=== PATIENT | male | born 1995 | race Two or more races ===

== ENCOUNTER 2024-02-04 10:51 | Emergency (ER) | payer OTHER, SELFPAY ==
[2024-02-04 11:10] VITALS: BP 152/99; PULSE 74; RESP 22; TEMP 36.7; O2SAT 98; BMI 27.1
--- NOTE | 2024-02-04 11:21 | EXP.UTC ---
Discharge Plan Disposition Patient Disposition: Home, Self-Care Condition: Good Prescriptions Prescriptions: New amoxicillin 500 mg capsule 500 mg PO TID 7 Days Qty: 21 0RF ibuprofen 600 mg tablet 600 mg PO Q6HP PRN (Reason: Moderate Pain) Qty: 20 0RF No Action glipizide 2.5 mg tablet extended release 24hr 2.5 mg PO DAILY Patient Comments: TAKE 1 TABLET BY MOUTH DAILY losartan 25 mg tablet 25 mg PO DAILY Patient Comments: TAKE 1 TABLET BY MOUTH DAILY metformin 500 mg tablet extended release 24 hr 500 mg PO DAILY Patient Comments: TAKE 1 TABLET BY MOUTH DAILY WITH BREAKFAST Referrals Follow up/Referrals: Delio Martinez [Primary Care Provider] - See instructions Activity Restrictions/Add. Instructions Additional Instructions/Restrictions: Gargle warm salt water that will help with discomfort and soreness in mouth Take antibiotic as prescribed Use dental balls as directed in the [facility] See Dentist on Tuesday as you are scheduled Clinical Impressions Clinical Impression: Dental infection Instructions Patient Instructions: DI for Dental Pain, Amoxicillin Discharge ED Provider: Shanique Gloria [facility] HPI General Stated complaint: tooth pain, abrasion on tongue Mode of Arrival: Ambulatory Source of Information: Patient Limitations: No Limitations Time Seen by Provider: 02/04/24 11:21 Description of Symptoms (Recalled from Triage Doc. by RN): PATIENT STATES HE WAS EATING THIS MORNING AND A BOTTOM RIGHT TOOTH BROKE HEENT Symptoms (Recalled from RN notes): Yes Resp Symptoms (Recalled from RN notes): No Skin Symptoms (Recalled from RN notes): No MS Symptoms (Recalled from RN notes): No Functional Status (Recalled from RN notes): WNL History of Present Illness Provider Complaint: Patient states that he has been having problems and pain on and off in his right lower back tooth and this morning he was eating and it broke States he does have some redness and tenderness around the tooth and got a dentist appointment for Tuesday but they told him to go to a [facility] to get him through until he comes in there on Tuesday Related Data Home Medications Medication Instructions Recorded Confirmed glipizide 2.5 mg tablet, extended 2.5 mg PO DAILY 02/04/24 02/04/24 release 24 hr losartan 25 mg tablet 25 mg PO DAILY 02/04/24 02/04/24 metformin 500 mg tablet,extended 500 mg PO DAILY 05/11/24 05/11/24 release 24 hr Previous Rx's Medication Instructions Recorded amoxicillin 500 mg capsule 500 mg PO TID 7 days #21 caps 02/04/24 ibuprofen 600 mg tablet 600 mg PO Q6HP PRN Moderate Pain 02/04/24 #20 tabs Allergies Allergy/AdvReac Type Severity Reaction Status Date / Time morphine Allergy Verified 02/04/24 11:20 Worker's Comp Is this a Worker's Comp case?: No [facility] Dis[facility]: The information contained in this section may have been updated after the patient was seen, as this information can be updated by other users. Medical History (Updated 02/04/24 @ 11:28 by Shanique Gloria APRN) Hypertension Diabetes mellitus, type 2 Social History Smoking Status: Unknown if ever smoked alcohol intake: never current occupational status: employed Travel in the last 8 weeks: None ROS Obtained: Yes All systems reviewed & no additional complaints except as documented and Yes Systems reviewed as appropriate & no additional complaints except as documented Constitutional Constitutional: Reports system reviewed and no additional complaints, except as documented and Reports as per HPI ENT Ears, Nose, Mouth, and Throat: Reports system reviewed and no additional complaints, except as documented, Reports as per HPI and Reports dental pain (right lower back) Physical Exam General General appearance: alert and in no apparent distress ENT ENT exam: Present mucous membranes moist Expanded ENT Exam Open Mouth Image: 1. broken with redness noted on gumline and minimal swelling Teeth exam: Present gingival swelling (mild and mild redness) Respiratory Respiratory exam: Present normal lung sounds bilaterally; Absent respiratory distress or wheezes Cardiovascular Cardiovascular exam: Present regular rate, normal rhythm and normal heart sounds Neurological Exam Neurological exam: Present alert, oriented X3 and normal gait Medical Decision Making Kam Inquiry Pt receiving controlled substance: No Kam was queried for this patient: No Vital Signs: 02/04/24 11:10 Temperature 98.1 F Temperature Source Oral Pulse Rate [Left Brachial] 74 Respiratory Rate 22 Blood Pressure [Left Arm] 152/99 H Blood Pressure Mean [Left Arm] 116 Blood Pressure Source [Left Arm] Automatic Cuff Blood Pressure Position [Left Arm] Sitting 02 Sat by Pulse Oximetry 98 Oxygen Delivery Method Room Air
[2024-02-04 11:28] VITALS: BP 152/99; PULSE 74; RESP 22; TEMP 36.7; O2SAT 98
[2024-02-04] MEDS: TETRACAINE/BENZOCAINE/BUTAMBEN 56 GM SPRAY TP (11:32)
[2024-02-04] MEDS: LIDOCAINE 2% VISCOUS SOL 15ML UDC 15 ML PO (11:32)
== END 2024-02-04 11:33 | disposition home or self-care (01) ==
PROVIDERS: Emergency Provider Nurse Practitioner; PCP Internal Medicine
DX: K04.7 Periapical abscess without sinus (principal)
CPT/HCPCS: 99204; 99212; G0463